=== PATIENT | male | born 1965 | race Caucasian/White ===

== ENCOUNTER 2020-03-09 13:38 | Outpatient (CLI) | payer BC | END 2020-03-09 23:59 | disposition home or self-care (01) | LOC: LAB 13:38 | PROVIDERS: ATTEND Internal Medicine | DX: R63.4 Abnormal weight loss (principal) | CPT/HCPCS: 36415; 80074; 86592; 87491; 87591; 87806 ==

== ENCOUNTER 2020-06-14 11:30 | Outpatient (CLI) | payer BC | END 2020-06-14 23:59 | disposition home or self-care (01) | LOC: MSC 11:30 | PROVIDERS: ATTEND Internal Medicine | DX: F41.8 Other specified anxiety disorders (principal); Y04.0XXA Assault by unarmed brawl or fight, initial encounter; Y92.59 Other trade areas as the place of occurrence of the external cause; Y99.9 Unspecified external cause status ==

== ENCOUNTER 2021-02-27 11:10 | Emergency (ER) | payer BC ==
[~2021-02-27] VITALS: Ht 170.2 cm; Wt 75.7 kg
--- NOTE | 2021-02-27 11:22 | NUR ---
L SIDED CHEST PAIN, NUMBNESS TO LUE SINCE LAST NIGHT. ADMITS TO DRUG USE 2 NIGHTS AGO. PATIENT A/OX4, BREATHING EVEN AND UNLABORED, NO SOB NOTED. 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
--- NOTE | 2021-02-27 11:25 | NUR ---
DR. BROWNE AT BEDSIDE FOR EVAL.
[2021-02-27] MEDS ORDERED: LORAZEPAM 1 MG TABLET PO ONE (11:30)
[2021-02-27] MEDS ORDERED: LORAZEPAM 1 MG TABLET ONE (11:39)
[2021-02-27 11:40] LABS: BASOPHILS % (AUTO) 0.7 % (0.0-2.0); EOSINOPHILS % (AUTO) 1.7 % (0.0-6.0); HEMATOCRIT 42 % (39-51); HEMOGLOBIN 13.6 g/dL (13.5-17.5); LYMPHOCYTES # (AUTO) 1.4 K/uL (0.8-4.8); LYMPHOCYTES % (AUTO) 25.9 % (20.0-44.0); MEAN CORPUSCULAR HGB CONC 32 g/dl (31.0-36.0); MEAN CORPUSCULAR VOLUME 79 fL (80-96); MONOCYTES # (AUTO) 0.6 K/uL (0.1-1.30); MONOCYTES % (AUTO) 11.6 % (2.0-12.0); NEUTROPHILS # (AUTO) 3.3 K/uL (1.8-8.9); NEUTROPHILS % (AUTO) 60.1 % (43.0-81.0); PLATELET COUNT (AUTO) 280 K/uL (150-450); WHITE BLOOD COUNT (AUTO) 5.5 K/uL (4.3-11.0)
[2021-02-27 11:48] LABS: CALCIUM, SERUM 8.4 mg/dL (8.5-10.1); CARBON DIOXIDE 27 mmol/L (21-32); CHLORIDE 102 mmol/L (98-107); CREATININE 1.3 mg/dL (0.6-1.3); GLUCOSE 95 mg/dL (74-106); SODIUM SERUM 139 mmol/L (136-145); UREA NITROGEN, BLOOD 12 mg/dL (7-18)
--- NOTE | 2021-02-27 12:35 | NUR ---
PATIENT RESTING, NO DISTRESS NOTED. A/OX4, CALM AND DENIES PAIN AT THIS TIME. Ambulatory with steady gait. IV removed. Catheter intact and site benign. Pressure and 4x4 applied to site. No bleeding noted. Patient discharged to home in stable condition. Written and verbal after care instructions given. Patient verbalizes understanding of instruction.
[2021-02-27 12:36] VITALS: BP 140/97
== END 2021-02-27 12:36 | disposition home or self-care (01) ==
LOC: ER 11:12
DX: R07.89 Other chest pain (principal); F19.10 Other psychoactive substance abuse, uncomplicated; I10 Essential (primary) hypertension
CPT/HCPCS: 36415; 71045-TC; 80048-TC; 84484-TC; 85025-TC

== ENCOUNTER 2022-03-13 12:01 | Emergency (ER) | payer BC ==
[~2022-03-13] VITALS: Ht 172.7 cm; Wt 77.6 kg
--- NOTE | 2022-03-13 12:18 | NUR ---
dr valverde at bedside for eval.
--- NOTE | 2022-03-13 12:52 | NUR ---
artificial breeding technician at bedside for RLE duplex ultrasound
--- NOTE | 2022-03-13 13:11 | NUR ---
radiology at bedside for chest xray.
--- NOTE | 2022-03-13 13:21 | NUR ---
Patient discharged to home in stable condition. Written and verbal after care instructions given. Patient verbalizes understanding of instruction.
[2022-03-13 13:23] VITALS: BP 142/84
== END 2022-03-13 13:23 | disposition home or self-care (01) ==
LOC: ER 12:09
DX: R60.0 Localized edema (principal); I10 Essential (primary) hypertension
CPT/HCPCS: 71045-TC; 93971-TC

== ENCOUNTER 2023-04-08 18:35 | Emergency (ER) | payer BC ==
[~2023-04-08] VITALS: Ht 172.7 cm; Wt 78.0 kg
[2023-04-08] MEDS ORDERED: IV NS 0.9% 1,000 ML BAG IV ONE (20:00)
[2023-04-08 20:22] LABS: BASOPHILS # (AUTO) 0.1 K/uL (0.0-0.2); BASOPHILS % (AUTO) 0.4 % (0.0-2.0); EOSINOPHILS % (AUTO) 0.2 % (0.0-6.0); HEMATOCRIT 50 % (39-51); HEMOGLOBIN 16.2 g/dL (13.5-17.5); LYMPHOCYTES # (AUTO) 1.5 K/uL (0.8-4.8); LYMPHOCYTES % (AUTO) 11.6 % (20.0-44.0); MEAN CORPUSCULAR HEMOGLOBIN 27 PG (26.0-33.0); MEAN CORPUSCULAR HGB CONC 32 g/dl (31.0-36.0); MEAN CORPUSCULAR VOLUME 83 fL (80-96); MONOCYTES # (AUTO) 0.7 K/uL (0.1-1.30); MONOCYTES % (AUTO) 5.5 % (2.0-12.0); NEUTROPHILS # (AUTO) 10.9 K/uL (1.8-8.9); NEUTROPHILS % (AUTO) 82.3 % (43.0-81.0); PLATELET COUNT (AUTO) 258 K/uL (150-450); RED BLOOD CELL COUNT(AUTO) 6.06 MIL/uL (4.5-6.0); RED CELL DISTRIBUTION WIDTH 15.9 % (11.5-15.0); WHITE BLOOD COUNT (AUTO) 13.2 K/uL (4.3-11.0)
[2023-04-08 20:36] LABS: CALCIUM, SERUM 8.8 mg/dL (8.5-10.1); CARBON DIOXIDE 26 mmol/L (21-32); CHLORIDE 98 mmol/L (98-107); GLUCOSE 140 mg/dL (74-106); POTASSIUM 3.3 mmol/L (3.5-5.1); SODIUM SERUM 133 mmol/L (136-145); UREA NITROGEN, BLOOD 21 mg/dL (7-18)
[2023-04-08] MEDS ORDERED: LORAZEPAM INJ 2 MG/ML VIAL IV ONE (21:00)
[2023-04-08] MEDS ORDERED: ONDANSETRON HCL/PF 4 MG/2 ML VIAL IV ONE (21:00)
[2023-04-08] MEDS ORDERED: ONDANSETRON HCL/PF 4 MG/2 ML VIAL ONE (21:20)
[2023-04-08 21:40] VITALS: BP 125/84; TEMP 98.4; O2SAT 98
== END 2023-04-08 21:40 | disposition home or self-care (01) ==
LOC: ER 18:36
DX: F41.9 Anxiety disorder, unspecified (principal); I10 Essential (primary) hypertension; K21.9 Gastro-esophageal reflux disease without esophagitis
CPT/HCPCS: 99285; 96374; 71045; 96361; 96375; 93005; 85025; 80048; 36415; 84484; 82962; J2060; J2405; J7030

== ENCOUNTER 2025-05-02 02:20 | Emergency (ER) | payer BC ==
[~2025-05-02] VITALS: Ht 172.7 cm; Wt 83.0 kg
[2025-05-02] MEDS ORDERED: ONDANSETRON 4 MG TAB.RAPDIS ONE (03:06)
[2025-05-02] MEDS ORDERED: HYDROMORPHONE 1 MG/1 ML DISP.SYRIN ONE (03:06)
[2025-05-02] MEDS: HYDROMORPHONE 1 MG/1 ML DISP.SYRIN IM ONE (03:07)
[2025-05-02] MEDS: ONDANSETRON 4 MG TAB.RAPDIS PO ONE (03:07)
[2025-05-02] MEDS ORDERED: CLONIDINE HCL 0.1 MG TABLET ONE (04:30)
[2025-05-02] MEDS ORDERED: KETOROLAC TROMETHAMINE INJ 30 MG/ML VIAL ONE (04:30)
[2025-05-02] MEDS: KETOROLAC TROMETHAMINE INJ 30 MG/ML VIAL IM ONE (04:31)
[2025-05-02] MEDS: CLONIDINE HCL 0.1 MG TABLET PO ONE (04:31)
[2025-05-02 04:36] LABS: APPEARANCE,URINE CLEAR (CLEAR); BLOOD, URINE NEGATIVE Ery/uL (NEGATIVE); LEUKOCYTE ESTERASE ,URINE NEGATIVE (NEGATIVE); NITRITE, URINE NEGATIVE (NEGATIVE); UGLUCOSE NEGATIVE (NEGATIVE)
[2025-05-02 04:49] LABS: ADD URINE CULTURE NO; SQUAMOUS EPITHELIAL CELL,UR None Seen /HPF (None Seen)
[2025-05-02 04:50] LABS: AMPHETAMINE, URINE NEGATIVE (NEGATIVE); BARBITURATE, URINE NEGATIVE (NEGATIVE); BENZODIAZEPINE, URINE NEGATIVE (NEGATIVE); CANNABINOID, URINE NEGATIVE (NEGATIVE); COCCAINE, URINE NEGATIVE (NEGATIVE)
[2025-05-02 04:52] LABS: OPIATE, URINE POSITIVE (NEGATIVE)
[2025-05-02] MEDS ORDERED: KETO10TA2 PO (05:56)
[2025-05-02 06:16] VITALS: BP 144/88; TEMP 98.1; O2SAT 98
== END 2025-05-02 06:17 | disposition home or self-care (01) ==
LOC: ER 02:22
DX: M25.511 Pain in right shoulder (principal); I10 Essential (primary) hypertension; Z96.611 Presence of right artificial shoulder joint; Z98.890 Other specified postprocedural states
CPT/HCPCS: 99285; 73200; 96372; 80307; 81001; J1885; Q0162; J1171